=== PATIENT | male | born 1995 | race African-American/Black ===

== ENCOUNTER 2018-06-11 02:24 | Emergency (ER) | payer SELFPAY ==
[~2018-06-11] VITALS: Ht 180.3 cm; Wt 79.4 kg
[2018-06-11 02:24] VITALS: BP 137/77
== END 2018-06-11 04:13 | disposition home or self-care (01) ==
LOC: ER 02:35
DX: S01.01XA Laceration without foreign body of scalp, initial encounter (principal); W10.8XXA Fall (on) (from) other stairs and steps, initial encounter; Y93.89 Activity, other specified; Y92.89 Other specified places as the place of occurrence of the external cause; Y99.8 Other external cause status
CPT/HCPCS: A4606; A6403; Z7610